=== PATIENT | male | born 1995 | race Two or more races ===

== ENCOUNTER 2019-04-15 03:48 | Emergency (ER) | payer OTHER ==
[~2019-04-15] VITALS: Ht 180.3 cm; Wt 68.0 kg
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
--- NOTE | 2019-04-15 04:09 | NUR ---
IV INITIATED RAC 20G. LABS DRAWN FROM SITE. [employer] AT BEDSIDE FOR COLLECTION. IV INTACT AND PATENT, PLACED ON SALINE LOCK
[2019-04-15 04:13] LABS: BASOPHILS % (AUTO) 0.4 % (0.0-2.0); EOSINOPHILS % (AUTO) 0.3 % (0.0-6.0); HEMATOCRIT 42 % (39-51); HEMOGLOBIN 14.3 g/dL (13.5-17.5); LYMPHOCYTES # (AUTO) 1.2 /CMM (0.8-4.8); LYMPHOCYTES % (AUTO) 11.3 % (20.0-44.0); MEAN CORPUSCULAR HGB CONC 34 g/dl (31.0-36.0); MEAN CORPUSCULAR VOLUME 82 fL (80-96); MONOCYTES # (AUTO) 1.2 /CMM (0.1-1.30); MONOCYTES % (AUTO) 10.8 % (2.0-12.0); NEUTROPHILS # (AUTO) 8.5 /CMM (1.8-8.9); NEUTROPHILS % (AUTO) 77.2 % (43.0-81.0); PLATELET COUNT (AUTO) 205 /CMM (150-450); RED BLOOD CELL COUNT(AUTO) 5.18 MIL/uL (4.5-6.0)
[2019-04-15 04:20] LABS: CALCIUM, SERUM 8.9 mg/dL (8.5-10.1); CARBON DIOXIDE 33 mmol/L (21-32); CHLORIDE 97 mmol/L (98-107); GLUCOSE 86 mg/dL (74-106); POTASSIUM 3.5 mmol/L (3.5-5.1); SODIUM SERUM 135 mmol/L (136-145); UREA NITROGEN, BLOOD 10 mg/dL (7-18)
[2019-04-15] MEDS ORDERED: IOHEXOL-300 100 ML VIAL IV ONE (04:24)
[2019-04-15] MEDS ORDERED: CT SWABBABLE VALVE TRANS SET 1 EA INFUS.SET MC ONE (04:24)
--- NOTE | 2019-04-15 04:36 | NUR ---
BROUGHT BY RADIOLOGY TO CT
--- NOTE | 2019-04-15 05:31 | NUR ---
PT MEDICALLY CLEARED FOR DISCHARGE. LEFT IN CUSTODY WITH [employer]. IV removed. Catheter intact and site benign. Pressure and 4x4 applied to site. No bleeding noted.Pt ambulatory with a steady gait
[2019-04-15 05:32] VITALS: BP 118/82
== END 2019-04-15 05:36 ==
LOC: ER 03:50
DX: R07.89 Other chest pain (principal); R51 Headache; F17.200 Nicotine dependence, unspecified, uncomplicated; V49.49XA Driver injured in collision with other motor vehicles in traffic accident, initial encounter; Y93.89 Activity, other specified; Y92.413 State road as the place of occurrence of the external cause; Y99.8 Other external cause status
CPT/HCPCS: 36415; 70450; 71260; 80048; 84484; 85025; 93005; 99284; Q9967